=== PATIENT | female | born 1975 | race Two or more races ===

== ENCOUNTER 2020-03-20 22:35 | Emergency (ER) | payer SELFPAY ==
[~2020-03-20] VITALS: Ht 157.5 cm; Wt 80.0 kg
--- NOTE | 2020-03-20 22:44 | NUR ---
unable to perform EKG. patient will not hold still.
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
[2020-03-20] MEDS ORDERED: SODIUM CHLORIDE FLUSH 10ML SYR IVF ONE (23:00)
[2020-03-20] MEDS ORDERED: HYDROmorphone 1 MG/ML, 1ML INJ ONE (23:15)
--- NOTE | 2020-03-20 23:25 | NUR ---
PT MEDICATED PER OCT. PANTS CUT OFF AND REMOVED. PT STRAIGHT CATH'D PER ORDERS. SAMPLE SENT TO LAB.
[2020-03-20] MEDS ORDERED: HYDROmorphone 1 MG/ML, 1ML INJ IVPush ONE (23:30)
[2020-03-20 23:32] LABS: MICROSCOPIC NOT IND
[2020-03-20 23:45] LABS: AMPHETAMINE SCREEN, URINE Negative (Negative); BARBITURATE SCREEN, URINE Negative (Negative); BENZODIAZEPINE SCREEN, URINE Positive (Negative); CANNABINOID SCREEN, URINE Negative (Negative); COCAINE SCREEN, URINE Negative (Negative); METHADONE SCREEN, URINE Positive (Negative); OPIATE SCREEN, URINE Negative (Negative)
[2020-03-20 23:46] LABS: BASOPHILS # (AUTO) 0.06 x10^3/uL (0-0.1); BASOPHILS % (AUTO) 1 % (0-1); EOSINOPHILS # (AUTO) 0.28 x10^3/uL (0-0.4); EOSINOPHILS % (AUTO) 2 % (1-7); LYMPHOCYTES # (AUTO) 2.98 x10^3/uL (1-3.4); LYMPHOCYTES % (AUTO) 25 % (22-44); MD NO; MEAN CORPUSCULAR HGB CONC 32.4 g/dL (32.4-35.8); MEAN CORPUSCULAR VOLUME 89.7 fL (80-100); MEAN PLATELET VOLUME 8.6 fL (7.4-10.4); MONOCYTES % (AUTO) 3 % (2-9); NEUTROPHILS # (AUTO) 8.01 x10^3/uL (1.8-6.8); NEUTROPHILS % (AUTO) 68 % (42-75); PLATELET COUNT 353 x10^3/uL (130-400); RED BLOOD COUNT 4.38 x10^6/uL (3.82-5.3); RED CELL DISTRIBUTION WIDTH 13.8 % (9.6-15.2)
[2020-03-20 23:56] LABS: SALICYLATE LEVEL 3.2 mg/dL (2.8-20.0)
--- NOTE | 2020-03-21 00:30 | NUR ---
RESTRAINTS REMOVED, RIGHT ARM AND LEFT LEG AT FIRST, PT CONTINUES SLEEPING SOUNDLY. NAD NOTED
[2020-03-21 00:37] VITALS: BP 110/59
--- NOTE | 2020-03-21 00:45 | NUR ---
FINAL 2 RESTRAINTS REMOVED. PT HAS NO FURTHER BEHAVIORAL ISSUES AT THIS TIME. NAD NOTED.
--- NOTE | 2020-03-21 01:28 | NUR ---
PT AWAKE, SITTING IN CHAIR NEXT TO BED. DENIES ANY NEEDS OR CONCERNS, NO MEDICAL COMPLAINTS. PT SPEAKING IN FULL AND UNDERSTANDEABLE SENTENCES. ERP MADE AWARE.
== END 2020-03-21 01:44 | disposition home or self-care (01) ==
LOC: ED 03-21 01:30
DX: F15.129 Other stimulant abuse with intoxication, unspecified (principal); R41.82 Altered mental status, unspecified
CPT/HCPCS: 36415; 80307; 81003; 85025; 99283; J1170